=== PATIENT | male | born 1955 | race Caucasian/White ===

== ENCOUNTER 2020-12-25 08:49 | Observation (INO) | payer MEDICARE ==
[2020-12-25] VITALS (13 sets, daily range): BP systolic 103–150; BP diastolic 68–94
[~2020-12-25] VITALS: Ht 170.2 cm; Wt 78.9 kg
[2020-12-25 09:09] LABS: BASOPHILS # (AUTO) 0.1 (0.0-0.1); EOSINOPHILS # (AUTO) 0.3 (0.0-0.4); EOSINOPHILS % 4.4 % (0.0-6.0); HEMATOCRIT 44.4 % (38.2-49.6); HEMOGLOBIN 14.6 g/dL (14.0-18.0); LYMPHOCYTES # (AUTO) 2.2 (1.0-3.2); LYMPHOCYTES % 36.4 % (18.0-39.1); MEAN CORPUSCULAR HEMOGLOBIN 29.9 pg (28-32); MEAN CORPUSCULAR HGB CONC 32.9 g/dL (31-35); MEAN CORPUSCULAR VOLUME 90.8 fL (81-99); MONOCYTES # (AUTO) 0.7 (0.2-0.8); MONOCYTES % 10.6 % (4.4-11.3); NEUTROPHILS # (AUTO) 2.9 (2.1-6.9); NEUTROPHILS % 47.3 % (38.7-80.0); PLATELET COUNT 229 x10e3/uL (140-360); RED BLOOD COUNT 4.89 x10e6/uL (4.3-5.7); RED CELL DISTRIBUTION WIDTH 13.4 % (11.7-14.4)
[2020-12-25 09:32] LABS: ALBUMIN/GLOBULIN RATIO 1.1 (0.8-2.0); ANION GAP 11.3 mmol/L (8-16); CALCIUM 9.2 mg/dL (8.4-10.2); CREATININE, SERUM 0.99 mg/dL (0.72-1.25); POTASSIUM 4.3 mmol/L (3.5-5.1)
[2020-12-25] MEDS ORDERED: FENTANYL CITRATE/PF 100MCG/2 ML INJ ONE ×2 (11:17→12:45)
[2020-12-25] MEDS ORDERED: MIDAZOLAM HCL 2 MG/2 ML VIAL ONE ×3 (11:17→12:53)
[2020-12-25] MEDS ORDERED: LIDOCAINE HCL 2% LOCAL 20 ML VIAL ONE (11:18)
[2020-12-25] MEDS ORDERED: HEPARIN SOD/SOD CHLORIDE 2,000 ML ONE (11:18)
[2020-12-25] MEDS ORDERED: SODIUM CHLORIDE 0.9% 1000ML 1,000 ML ONE ×2 (11:18→12:23)
[2020-12-25] MEDS ORDERED: IOPAMIDOL 370 MG/ML 200 ML INFUS..BTL INJ ONE (11:18)
[2020-12-25] MEDS ORDERED: VERAPAMIL HCL 2.5 MG/ML 2 ML VIAL ONE (11:20)
[2020-12-25] MEDS ORDERED: HEPARIN SOD/SOD CHLORIDE 1,000 ML ONE (11:52)
[2020-12-25] MEDS ORDERED: PHENYLEPHRINE HCL 1% 10 MG/ML VIAL ONE (12:32)
[2020-12-25] MEDS ORDERED: SODIUM CHLORIDE 0.9% 0 ML ONE (12:33)
[2020-12-25] MEDS ORDERED: PRASUGREL 10 MG TAB ONE (12:46)
[2020-12-25] MEDS ORDERED: ASPIRIN 325 MG TAB ONE (12:46)
[2020-12-25] MEDS ORDERED: HYDROCODONE/APAP 5MG-325MG TAB ONE (14:03)
[2020-12-26 05:31] VITALS: BP 117/74
[2020-12-26 07:23] VITALS: BP 114/77
[2020-12-26 07:29] VITALS: BP 114/77
[2020-12-26 11:23] VITALS: BP 147/82
[2020-12-26] MEDS ORDERED: ASPIRIN81 MG PO ×2 (12:12→14:28)
[2020-12-26] MEDS ORDERED: EFFIENT10 MG PO ×2 (12:12→14:27)
[2020-12-26] MEDS ORDERED: CRESTOR10 MG PO ×2 (14:00→14:29)
[2020-12-26 14:10] LABS: CHOL/HDL RATIO 5.7 (3.9-4.7)
[2020-12-26] MEDS ORDERED: CRESTOR 10MG PO SCH (21:00)
[2020-12-27] MEDS ORDERED: PRASUGREL 10 MG TAB PO SCH (09:00)
[2020-12-27] MEDS ORDERED: ASPIRIN 81 MG ENTERIC COATED PO SCH (09:00)
== END 2020-12-27 07:43 | disposition home or self-care (01) ==
LOC: ER 09:01 → ERHOLD 10:13 → MED/SURG2 16:04 → INTOOBSV 12-26 09:30 → OBSVTOIN 12-26 09:30
PROVIDERS: ADMIT Internal Medicine; ATTEND Internal Medicine
DX: I25.110 Atherosclerotic heart disease of native coronary artery with unstable angina pectoris (principal); Z95.5 Presence of coronary angioplasty implant and graft; Z87.891 Personal history of nicotine dependence; Z82.49 Family history of ischemic heart disease and other diseases of the circulatory system; Z88.0 Allergy status to penicillin; Z20.822 Contact with and (suspected) exposure to COVID-19
CPT/HCPCS: 93458; C9600; C9602; 36415; 71045; 80053; 80061; 84484; 85025; 92928; 92929; 93005; 99152; 99153; 99284; C1724; C1725; C1874; C1887; G0378; J2001; J2250; J2370; J3010; J7030; J7050; Q9967; U0002